=== PATIENT | male | born 1980 | race American Indian/Alaskan Native ===

== ENCOUNTER 2016-04-23 02:41 | Emergency (ER) | payer SELFPAY ==
[2016-04-23 03:02] VITALS: BP 144/99
[2016-04-23 03:28] LABS: Basophils % (Auto) 0.4 % (0.0-1.8); Hematocrit 44.7 % (35.5-45.6); Hemoglobin 14.9 gm/dl (11.8-15.2); Mean Corpuscular HGB Conc 33 % (32-34); Mean Corpuscular Hemoglobin 31 pg (28-32); Mean Corpuscular Volume 92 fl (84-94); Platelet Count 133 K/mm3 (140-440); Red Blood Count 4.84 M/mm3 (3.65-5.03); Red Cell Distribution Width 12.6 % (13.2-15.2); White Blood Count 6.6 K/mm3 (4.5-11.0)
[2016-04-23 03:46] LABS: Anion Gap 20 mmol/L; BUN/Creatinine Ratio 13.33; Blood Urea Nitrogen 8 mg/dL (9-20); Calcium 8.8 mg/dL (8.4-10.2); Carbon Dioxide 19 mmol/L (22-30); Chloride 96.8 mmol/L (98-107); Glucose 268 mg/dL (75-100); Potassium 3.7 mmol/L (3.6-5.0); Sodium 132 mmol/L (137-145)
--- NOTE | 2016-04-23 04:34 | Emergency Department Report ---
- General Chief complaint: Skin/Abscess/Foreign Body Stated complaint: BUTTOCKS PAIN Time Seen by Provider: 04/23/16 04:33 Source: patient Mode of arrival: Ambulatory Limitations: No Limitations - History of Present Illness Initial comments: 35-year-old male presents to emergency room with complaints of bump to the right buttock area for the last few days. Patient is concerned because his diabetic. He denies of any fever or drainage. MD complaint: abscess/boil (right gluteal area) -: Gradual, days(s) (few) Tetanus Up to Date: yes Location: buttocks (right) Severity: mild Severity scale (0 -10): 2 Quality: aching, dull Consistency: constant Improves with: none Worsens with: palpation, movement Context: none Associated symptoms: denies other symptoms Treatments Prior to Arrival: none - Related Data Home Medications Medication Instructions Recorded Confirmed Last Taken Gabapentin [Neurontin] 100 mg PO DAILY 10/10/14 06/22/15 06/21/15 Insulin Aspart Protam & Aspart 15 units SUB-Q QAC 10/10/14 06/22/15 06/21/15 [NovoLOG Mix 70-30 Flexpen] Insulin Glargine [Lantus VIAL] 15 units SUB-Q QHS 10/10/14 06/22/15 06/21/15 Lisinopril [Zestril TAB] 20 mg PO QDAY 10/10/14 06/22/15 06/21/15 metFORMIN [Glucophage] 1,000 mg PO BID 10/10/14 06/22/15 06/21/15 Previous Rx's Medication Instructions Recorded Last Taken Type Promethazine [Phenergan TAB] 25 mg PO Q6HR PRN #20 tab 10/10/14 Unknown Rx Azithromycin [Zithromax Z-ALL] 0 mg PO DAILY #6 tab 06/20/15 06/21/15 Rx guaiFENesin/CODEINE [Robitussin AC] 10 ml PO Q6HR PRN #180 ml 06/20/15 06/21/15 Rx ALBUTEROL Inhaler [ProAir HFA 2 puff IH QID PRN #1 container 06/22/15 Unknown Rx Inhaler] Cephalexin [Keflex] 500 mg PO Q8HR #21 cap 04/23/16 Unknown Rx Sulfamethoxazole/Trimethoprim 1 each PO BID #14 tablet 04/23/16 Unknown Rx [Bactrim DS TAB] traMADol [Ultram] 50 mg PO Q6HR PRN #12 tablet 04/23/16 Unknown Rx Allergies Allergy/AdvReac Type Severity Reaction Status Date / Time No Known Allergies Allergy Verified 05/22/14 02:31 Abscess Boil HPI - HPI Chief Complaint: Skin/Abscess/Foreign Body Stated Complaint: BUTTOCKS PAIN Time Seen by Provider: 04/23/16 04:33 Home Medications: Home Medications Medication Instructions Recorded Confirmed Last Taken Gabapentin [Neurontin] 100 mg PO DAILY 10/10/14 06/22/15 06/21/15 Insulin Aspart Protam & Aspart 15 units SUB-Q QAC 10/10/14 06/22/15 06/21/15 [NovoLOG Mix 70-30 Flexpen] Insulin Glargine [Lantus VIAL] 15 units SUB-Q QHS 10/10/14 06/22/15 06/21/15 Lisinopril [Zestril TAB] 20 mg PO QDAY 10/10/14 06/22/15 06/21/15 metFORMIN [Glucophage] 1,000 mg PO BID 10/10/14 06/22/15 06/21/15 Previous Rx's Medication Instructions Recorded Last Taken Type Promethazine [Phenergan TAB] 25 mg PO Q6HR PRN #20 tab 10/10/14 Unknown Rx Azithromycin [Zithromax Z-ALL] 0 mg PO DAILY #6 tab 06/20/15 06/21/15 Rx guaiFENesin/CODEINE [Robitussin AC] 10 ml PO Q6HR PRN #180 ml 06/20/15 06/21/15 Rx ALBUTEROL Inhaler [ProAir HFA 2 puff IH QID PRN #1 container 06/22/15 Unknown Rx Inhaler] Cephalexin [Keflex] 500 mg PO Q8HR #21 cap 04/23/16 Unknown Rx Sulfamethoxazole/Trimethoprim 1 each PO BID #14 tablet 04/23/16 Unknown Rx [Bactrim DS TAB] traMADol [Ultram] 50 mg PO Q6HR PRN #12 tablet 04/23/16 Unknown Rx Allergies/Adverse Reactions: Allergies Allergy/AdvReac Type Severity Reaction Status Date / Time No Known Allergies Allergy Verified 05/22/14 02:31 ED Review of Systems ROS: Stated complaint: BUTTOCKS PAIN Other details as noted in HPI Comment: All other systems reviewed and negative Constitutional: denies: chills, fever Eyes: denies: eye pain, eye discharge, vision change ENT: denies: ear pain, throat pain Respiratory: denies: cough, shortness of breath, wheezing Cardiovascular: denies: chest pain, palpitations Endocrine: no symptoms reported Gastrointestinal: denies: abdominal pain, nausea, diarrhea Genitourinary: denies: urgency, dysuria Musculoskeletal: denies: back pain, joint swelling, arthralgia Skin: as per HPI. denies: rash, lesions Neurological: denies: headache, weakness, paresthesias Psychiatric: denies: anxiety, depression Hematological/Lymphatic: denies: easy bleeding, easy bruising ED Past Medical Hx - Past Medical History Previous Medical History?: Yes Hx Hypertension: Yes Hx Diabetes: Yes Hx Asthma: Yes Additional medical history: Neuropathy - Surgical History Past Surgical History?: No - Social History Smoking Status: Never Smoker Substance Use Type: Alcohol - Medications Home Medications: Home Medications Medication Instructions Recorded Confirmed Last Taken Type Gabapentin [Neurontin] 100 mg PO DAILY 10/10/14 06/22/15 06/21/15 History Insulin Aspart Protam & Aspart 15 units SUB-Q QAC 10/10/14 06/22/15 06/21/15 History [NovoLOG Mix 70-30 Flexpen] Insulin Glargine [Lantus VIAL] 15 units SUB-Q QHS 10/10/14 06/22/15 06/21/15 History Lisinopril [Zestril TAB] 20 mg PO QDAY 10/10/14 06/22/15 06/21/15 History Promethazine [Phenergan TAB] 25 mg PO Q6HR PRN #20 tab 10/10/14 06/22/15 Unknown Rx metFORMIN [Glucophage] 1,000 mg PO BID 10/10/14 06/22/15 06/21/15 History Azithromycin [Zithromax Z-ALL] 0 mg PO DAILY #6 tab 06/20/15 06/22/15 06/21/15 Rx guaiFENesin/CODEINE [Robitussin AC] 10 ml PO Q6HR PRN #180 ml 06/20/15 06/22/15 06/21/15 Rx ALBUTEROL Inhaler [ProAir HFA 2 puff IH QID PRN #1 container 06/22/15 Unknown Rx Inhaler] Cephalexin [Keflex] 500 mg PO Q8HR #21 cap 04/23/16 Unknown Rx Sulfamethoxazole/Trimethoprim 1 each PO BID #14 tablet 04/23/16 Unknown Rx [Bactrim DS TAB] traMADol [Ultram] 50 mg PO Q6HR PRN #12 tablet 04/23/16 Unknown Rx ED Physical Exam - General Limitations: No Limitations General appearance: alert, in no apparent distress - Head Head exam: Present: atraumatic, normocephalic - Eye Eye exam: Present: normal appearance - ENT ENT exam: Present: mucous membranes moist - Neck Neck exam: Present: normal inspection - Respiratory Respiratory exam: Present: normal lung sounds bilaterally. Absent: respiratory distress - Cardiovascular Cardiovascular Exam: Present: regular rate, normal rhythm. Absent: systolic murmur, diastolic murmur, rubs, gallop - GI/Abdominal GI/Abdominal exam: Present: soft, normal bowel sounds - Rectal Rectal exam: Present: deferred - Extremities Exam Extremities exam: Present: normal inspection - Back Exam Back exam: Present: normal inspection - Neurological Exam Neurological exam: Present: alert, oriented X3 - Psychiatric Psychiatric exam: Present: normal affect, normal mood - Skin Skin exam: Present: warm, dry, intact, normal color, other (1 cm size flat abscess to right buttock , near gluteal cleft without surrounding erythema or drainage noted.). Absent: rash ED Course Vital Signs 04/23/16 02:56 Temperature 99.5 F Pulse Rate 93 H Blood Pressure 144/99 O2 Sat by Pulse 97 Oximetry ED Medical Decision Making - Lab Data Result diagrams: 04/23/16 03:09 04/23/16 03:09 Critical care attestation.: If time is entered above; I have spent that time in minutes in the direct care of this critically ill patient, excluding procedure time. ED Disposition Clinical Impression: Abscess of buttock, right Disposition: DISCHARGED TO HOME OR SELFCARE Is pt being admited?: No Does the pt Need Aspirin: No Condition: Good Instructions: Abscess (ED) Prescriptions: Cephalexin [Keflex] 500 mg PO Q8HR #21 cap Sulfamethoxazole/Trimethoprim [Bactrim DS TAB] 1 each PO BID #14 tablet traMADol [Ultram] 50 mg PO Q6HR PRN #12 tablet PRN Reason: Pain Referrals: PRIMARY CARE, [Primary Care Provider] - 3-5 Days
[2016-04-23] MEDS ORDERED: NORCO 5/325 PO ONE (04:42)
[2016-04-23] MEDS ORDERED: BACTRIM DS PO ONE (04:42)
[2016-04-23] MEDS ORDERED: KEFLEX PO ONE (04:43)
== END 2016-04-23 05:20 | disposition home or self-care (01) ==
LOC: ED 02:41
DX: L02.31 Cutaneous abscess of buttock (principal); I10 Essential (primary) hypertension; E11.9 Type 2 diabetes mellitus without complications; J45.909 Unspecified asthma, uncomplicated
CPT/HCPCS: 36415; 80048; 82140; 85025; 99283

== ENCOUNTER 2016-06-29 14:04 | Emergency (ER) | payer SELFPAY ==
[2016-06-29 20:07] VITALS: BP 135/87
--- NOTE | 2016-07-01 07:31 | Emergency Department Report ---
Entered by KENIA BATEMAN, acting as scribe for CORI MURRAY NP. ED ENT HPI - General Chief complaint: Earache Stated complaint: LEFT EAR INFECTION Time Seen by Provider: 06/29/16 17:38 Source: patient Mode of arrival: Ambulatory Limitations: No Limitations - History of Present Illness Initial comments: 35 y/o male, NAD, non-toxic and well nourished, presents c/o left lower earlobe pain that started 3 days ago but worsened today. Pt notes using brand new earrings 3 days ago, without cleaning them prior. Sx include erythema, puss and swelling to the lower left earlobe but pt denies fever, chills, hearing problems , chest pain, ringing in ears, abd pain, ESPOSITO, or n/v. NKDA. complaint: ear pain (left) -: days(s) (3) Location: L ear Severity: mild Severity scale (0 -10): 4 Quality: constant Consistency: constant Improves with: none Context- Ear: other (put in new earrings) Associated Symptoms: denies: fever, cough, pain with swallowing, sore throat, hearing loss, discharge from ear, rhinorrhea - Related Data Home Medications Medication Instructions Recorded Confirmed Last Taken Gabapentin [Neurontin] 100 mg PO DAILY 10/10/14 06/22/15 06/21/15 Insulin Aspart Protam & Aspart 15 units SUB-Q QAC 10/10/14 06/22/15 06/21/15 [NovoLOG Mix 70-30 Flexpen] Insulin Glargine [Lantus VIAL] 15 units SUB-Q QHS 10/10/14 06/22/15 06/21/15 Lisinopril [Zestril TAB] 20 mg PO QDAY 10/10/14 06/22/15 06/21/15 metFORMIN [Glucophage] 1,000 mg PO BID 10/10/14 06/22/15 06/21/15 Previous Rx's Medication Instructions Recorded Last Taken Type Promethazine [Phenergan TAB] 25 mg PO Q6HR PRN #20 tab 10/10/14 Unknown Rx Azithromycin [Zithromax Z-ALL] 0 mg PO DAILY #6 tab 06/20/15 06/21/15 Rx guaiFENesin/CODEINE [Robitussin AC] 10 ml PO Q6HR PRN #180 ml 06/20/15 06/21/15 Rx ALBUTEROL Inhaler [ProAir HFA 2 puff IH QID PRN #1 container 06/22/15 Unknown Rx Inhaler] Cephalexin [Keflex] 500 mg PO Q8HR #21 cap 04/23/16 Unknown Rx Sulfamethoxazole/Trimethoprim 1 each PO BID #14 tablet 04/23/16 Unknown Rx [Bactrim DS TAB] traMADol [Ultram] 50 mg PO Q6HR PRN #12 tablet 04/23/16 Unknown Rx Sulfamethoxazole/Trimethoprim 1 each PO BID 7 Days 06/29/16 Unknown Rx [Bactrim DS TAB] Allergies Allergy/AdvReac Type Severity Reaction Status Date / Time No Known Allergies Allergy Verified 05/22/14 02:31 ED Dental HPI - General Chief complaint: Earache Stated complaint: LEFT EAR INFECTION Time Seen by Provider: 06/29/16 17:38 Source: patient Mode of arrival: Ambulatory Limitations: No Limitations - Related Data Home Medications Medication Instructions Recorded Confirmed Last Taken Gabapentin [Neurontin] 100 mg PO DAILY 10/10/14 06/22/15 06/21/15 Insulin Aspart Protam & Aspart 15 units SUB-Q QAC 10/10/14 06/22/15 06/21/15 [NovoLOG Mix 70-30 Flexpen] Insulin Glargine [Lantus VIAL] 15 units SUB-Q QHS 10/10/14 06/22/15 06/21/15 Lisinopril [Zestril TAB] 20 mg PO QDAY 10/10/14 06/22/15 06/21/15 metFORMIN [Glucophage] 1,000 mg PO BID 10/10/14 06/22/15 06/21/15 Previous Rx's Medication Instructions Recorded Last Taken Type Promethazine [Phenergan TAB] 25 mg PO Q6HR PRN #20 tab 10/10/14 Unknown Rx Azithromycin [Zithromax Z-ALL] 0 mg PO DAILY #6 tab 06/20/15 06/21/15 Rx guaiFENesin/CODEINE [Robitussin AC] 10 ml PO Q6HR PRN #180 ml 06/20/15 06/21/15 Rx ALBUTEROL Inhaler [ProAir HFA 2 puff IH QID PRN #1 container 06/22/15 Unknown Rx Inhaler] Cephalexin [Keflex] 500 mg PO Q8HR #21 cap 04/23/16 Unknown Rx Sulfamethoxazole/Trimethoprim 1 each PO BID #14 tablet 04/23/16 Unknown Rx [Bactrim DS TAB] traMADol [Ultram] 50 mg PO Q6HR PRN #12 tablet 04/23/16 Unknown Rx Sulfamethoxazole/Trimethoprim 1 each PO BID 7 Days 06/29/16 Unknown Rx [Bactrim DS TAB] Allergies Allergy/AdvReac Type Severity Reaction Status Date / Time No Known Allergies Allergy Verified 05/22/14 02:31 ED Review of Systems Comment: All other systems reviewed and negative Constitutional: denies: chills, fever ENT: ear pain (left lower earlobe), other (left lower earlobe swelling, erythema , puss but pt denies ringing in ears or hearing loss). denies: hearing loss Respiratory: denies: cough, shortness of breath Cardiovascular: denies: chest pain Gastrointestinal: denies: abdominal pain, nausea, vomiting, diarrhea Skin: other (left lower earlobe swelling, erythema, purulent drainage) Neurological: denies: headache, numbness ED Past Medical Hx - Past Medical History Previous Medical History?: Yes Hx Hypertension: Yes Hx Diabetes: Yes Hx Asthma: Yes Additional medical history: Neuropathy - Surgical History Past Surgical History?: No - Social History Smoking Status: Current Every Day Smoker Substance Use Type: Alcohol, Prescribed - Medications Home Medications: Home Medications Medication Instructions Recorded Confirmed Last Taken Type Gabapentin [Neurontin] 100 mg PO DAILY 10/10/14 06/22/15 06/21/15 History Insulin Aspart Protam & Aspart 15 units SUB-Q QAC 10/10/14 06/22/15 06/21/15 History [NovoLOG Mix 70-30 Flexpen] Insulin Glargine [Lantus VIAL] 15 units SUB-Q QHS 10/10/14 06/22/15 06/21/15 History Lisinopril [Zestril TAB] 20 mg PO QDAY 10/10/14 06/22/15 06/21/15 History Promethazine [Phenergan TAB] 25 mg PO Q6HR PRN #20 tab 10/10/14 06/22/15 Unknown Rx metFORMIN [Glucophage] 1,000 mg PO BID 10/10/14 06/22/15 06/21/15 History Azithromycin [Zithromax Z-ALL] 0 mg PO DAILY #6 tab 06/20/15 06/22/15 06/21/15 Rx guaiFENesin/CODEINE [Robitussin AC] 10 ml PO Q6HR PRN #180 ml 06/20/15 06/22/15 06/21/15 Rx ALBUTEROL Inhaler [ProAir HFA 2 puff IH QID PRN #1 container 06/22/15 Unknown Rx Inhaler] Cephalexin [Keflex] 500 mg PO Q8HR #21 cap 04/23/16 Unknown Rx Sulfamethoxazole/Trimethoprim 1 each PO BID #14 tablet 04/23/16 Unknown Rx [Bactrim DS TAB] traMADol [Ultram] 50 mg PO Q6HR PRN #12 tablet 04/23/16 Unknown Rx Sulfamethoxazole/Trimethoprim 1 each PO BID 7 Days 06/29/16 Unknown Rx [Bactrim DS TAB] ED Physical Exam - General Limitations: No Limitations General appearance: alert, in no apparent distress - Head Head exam: Present: atraumatic, normocephalic - Eye Eye exam: Present: normal appearance, PERRL, EOMI - ENT ENT exam: Present: normal exam, mucous membranes moist, TM's normal bilaterally , normal external ear exam, other (left lower earlobe swelling, erythema and purulent drainage) - Neck Neck exam: Present: normal inspection, full ROM. Absent: tenderness, meningismus, lymphadenopathy - Respiratory Respiratory exam: Present: normal lung sounds bilaterally, respiratory distress. Absent: wheezes, rales, rhonchi, stridor - Cardiovascular Cardiovascular Exam: Present: regular rate, normal rhythm, normal heart sounds. Absent: systolic murmur, diastolic murmur, rubs, gallop - GI/Abdominal GI/Abdominal exam: Present: soft, normal bowel sounds. Absent: tenderness, guarding, rebound - exam: Present: normal inspection - Extremities Exam Extremities exam: Present: normal inspection, full ROM, normal capillary refill. Absent: tenderness, pedal edema, joint swelling, calf tenderness - Back Exam Back exam: Present: normal inspection, full ROM. Absent: tenderness, CVA tenderness (R), CVA tenderness (L) - Neurological Exam Neurological exam: Present: alert, oriented X3, CN II-XII intact, normal gait - Psychiatric Psychiatric exam: Present: normal affect, normal mood - Skin Skin exam: Present: other (swelling, erythema and purulent drainage to the left lower earlobe) - Other Other exam information: Patient denies mastoid tenderness. No erythema or swelling noted mastoid area. No abscess or boil present. ED Course Vital Signs 06/29/16 14:40 Temperature 98.4 F Pulse Rate 70 Respiratory 18 Rate Blood Pressure 137/93 O2 Sat by Pulse 99 Oximetry ED Medical Decision Making - Medical Decision Making ED course: This is a 35-year-old male that presents with cellulitis to the left earlobe 1- after my physical exam, patient is prescribed Bactrim for 7 days. Patient was instructed to finish full course of antibiotics as prescribed. 2- patient was also instructed to follow-up with his primary care doctor in 3-5 days or if symptoms worsen report back to emergency room. 3- at the time of discharge the patient does not seem toxic or ill in appearance. No signs of distress noted. Patient agrees to discharge treatment plan. No further questions noted by the patient. ED Disposition Clinical Impression: Cellulitis of left earlobe Disposition: DISCHARGED TO HOME OR SELFCARE Is pt being admited?: No Does the pt Need Aspirin: No Condition: Stable Instructions: Cellulitis (ED) Additional Instructions: Follow-up with her primary care doctor in 3-5 days. If symptoms worsen such as boil, pus, drainage, worsening symptoms reported emergency room. Take full course of antibiotics as prescribed. Prescriptions: Sulfamethoxazole/Trimethoprim [Bactrim DS TAB] 1 each PO BID 7 Days Referrals: PRIMARY MD KARYN [Primary Care Provider] - 3-5 Days [facility] [Outside] - 3-5 Days [facility] [place] [Outside] - 3-5 Days YUN BOUDREAUX MD [Staff Physician] - 3-5 Days Forms: Work/School Release Form(ED) This documentation as recorded by the BHAVANA edwards RYAN,accurately reflects the service I personally performed and the decisions made by me,CORI MURRAY, NANCY.
== END 2016-06-29 20:08 | disposition home or self-care (01) ==
LOC: ED 14:04
DX: H60.12 Cellulitis of left external ear (principal); I10 Essential (primary) hypertension; E11.9 Type 2 diabetes mellitus without complications; J45.909 Unspecified asthma, uncomplicated; F17.200 Nicotine dependence, unspecified, uncomplicated; Z79.4 Long term (current) use of insulin
CPT/HCPCS: 82962; 99282

== ENCOUNTER 2017-02-22 15:36 | Emergency (ER) | payer SELFPAY ==
--- NOTE | 2017-02-22 22:10 | Emergency Department Report ---
[facility] Chief Complaint: Eye Problems Stated Complaint: PINK EYE Time Seen by Provider: 02/22/17 22:00 Duration: 1 Day Side: Right Severity: moderate Symptoms: Yes Eye Itching, Yes Eye Redness, Yes Eye Pain, Yes Mucous Drainage, Yes Purulent Drainage, No Blurred Vision, No Preceding URI, No H/O Allergic Rhinitis, No Contact Lens Use, No Trauma, No Fever, No Headache ED Review of Systems ROS: Stated complaint: PINK EYE Other details as noted in HPI Constitutional: denies: chills, fever Eyes: eye pain, eye discharge. denies: vision change ENT: denies: ear pain, throat pain Respiratory: denies: cough, shortness of breath, wheezing Cardiovascular: denies: chest pain, palpitations Endocrine: no symptoms reported Gastrointestinal: denies: abdominal pain, nausea, diarrhea Genitourinary: denies: urgency, dysuria Musculoskeletal: denies: back pain, joint swelling, arthralgia Skin: denies: rash, lesions Neurological: denies: headache, weakness, paresthesias Psychiatric: denies: anxiety, depression Hematological/Lymphatic: denies: easy bleeding, easy bruising ED Past Medical Hx - Past Medical History Previous Medical History?: Yes Hx Hypertension: Yes Hx Diabetes: Yes Hx Asthma: Yes Additional medical history: Neuropathy - Surgical History Past Surgical History?: No - Social History Smoking Status: Former Smoker Substance Use Type: Alcohol, Prescribed - Medications Home Medications: Home Medications Medication Instructions Recorded Confirmed Last Taken Type Gabapentin [Neurontin] 100 mg PO DAILY 10/10/14 06/22/15 06/21/15 History Insulin Aspart Protam & Aspart 15 units SUB-Q QAC 10/10/14 06/22/15 06/21/15 History [NovoLOG Mix 70-30 Flexpen] Insulin Glargine [Lantus VIAL] 15 units SUB-Q QHS 10/10/14 06/22/15 06/21/15 History Lisinopril [Zestril TAB] 20 mg PO QDAY 10/10/14 06/22/15 06/21/15 History Promethazine [Phenergan TAB] 25 mg PO Q6HR PRN #20 tab 10/10/14 06/22/15 Unknown Rx metFORMIN [Glucophage] 1,000 mg PO BID 10/10/14 06/22/15 06/21/15 History Azithromycin [Zithromax Z-ALL] 0 mg PO DAILY #6 tab 06/20/15 06/22/15 06/21/15 Rx guaiFENesin/CODEINE [Robitussin AC] 10 ml PO Q6HR PRN #180 ml 06/20/15 06/22/15 06/21/15 Rx ALBUTEROL Inhaler [ProAir HFA 2 puff IH QID PRN #1 container 06/22/15 Unknown Rx Inhaler] Cephalexin [Keflex] 500 mg PO Q8HR #21 cap 04/23/16 Unknown Rx Sulfamethoxazole/Trimethoprim 1 each PO BID #14 tablet 04/23/16 Unknown Rx [Bactrim DS TAB] traMADol [Ultram] 50 mg PO Q6HR PRN #12 tablet 04/23/16 Unknown Rx Sulfamethoxazole/Trimethoprim 1 each PO BID 7 Days tablet 06/29/16 Unknown Rx [Bactrim DS TAB] Cetirizine HCl [Zyrtec] 10 mg PO DAILY #30 tablet 02/22/17 Unknown Rx Lisinopril 20 mg PO DAILY #90 tablet 02/22/17 Unknown Rx Polymyxin B Sulf/Trimethoprim 1 drop OD QID #10 ml 02/22/17 Unknown Rx [Polytrim Eye Drops] [facility] Exam - Exam General: Vital signs noted. No distress. Alert and acting appropriately. Eye Exam: Right Injection, Right Mucous Discharge, Right Purulent Discharge, Both EOMI, Neither Chemosis, Neither Abnormal Pupil, Neither Eye Foreign Body, Neither Lid Foreign Body, Neither Photophobia HEENT: No Nasal Congestion, No Pharyngeal Erythema Remainder of HEENT: Normal Lungs: Yes Clear Lung Sounds, Yes Good Air Exchange, No Wheezes, No Stridor, No Cough, No Nasal Flaring, No Retractions, No Use of Accessory Muscles ED Course Vital Signs 02/22/17 16:07 Temperature 99.6 F Pulse Rate 84 Respiratory 18 Rate Blood Pressure 149/86 O2 Sat by Pulse 97 Oximetry ED Medical Decision Making - Medical Decision Making 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 1 day after contact sick contact 2 days ago symptoms include pain, discharge burning and itching, pt notes purulent discharge this am, there is no photophobia perrla eomi bilat right conjunctivae erythema, visual acuity 20/20 bilat, there is no blurred vision no decreased or double vision this is simple conjunctivitis , will tx for same , there is no eye swelling no lid cellulitis no periorbital cellulitis no throat or ear pain, pt with follow up with opthalmology Critical care attestation.: If time is entered above; I have spent that time in minutes in the direct care of this critically ill patient, excluding procedure time. ED Disposition Clinical Impression: Medication refill Conjunctivitis Qualifiers: Conjunctivitis type: acute Acute conjunctivitis type: bacterial Laterality: right Qualified Code(s): H10.31 - Unspecified acute conjunctivitis, right eye Disposition: DC- TO HOME OR SELFCARE Is pt being admited?: No Does the pt Need Aspirin: No Condition: Good Instructions: Conjunctivitis (ED) Prescriptions: Cetirizine HCl [Zyrtec] 10 mg PO DAILY #30 tablet Lisinopril 20 mg PO DAILY #90 tablet Polymyxin B Sulf/Trimethoprim [Polytrim Eye Drops] 1 drop OD QID #10 ml Referrals: CEZAR GONZALEZ MD [Primary Care Provider] - 3-5 Days Forms: Work/School Release Form(ED) Time of Disposition: 22:13
[2017-02-22 22:22] VITALS: BP 142/88
== END 2017-02-22 22:21 | disposition home or self-care (01) ==
LOC: ED 15:36
DX: H10.9 Unspecified conjunctivitis (principal); I10 Essential (primary) hypertension; E11.40 Type 2 diabetes mellitus with diabetic neuropathy, unspecified; Z79.4 Long term (current) use of insulin; Z87.891 Personal history of nicotine dependence
CPT/HCPCS: 99282

== ENCOUNTER 2018-02-24 12:26 | Emergency (ER) | payer SELFPAY ==
[2018-02-24 12:40] VITALS: BP 141/84
[2018-02-24] MEDS ORDERED: XYLOCAINE 2% INFILTRATI ONE (15:05)
[2018-02-24] MEDS ORDERED: NORCO 5/325 PO ONE (15:05)
--- NOTE | 2018-02-24 15:06 | Emergency Department Report ---
Abscess Boil HPI - HPI Chief Complaint: Skin/Abscess/Foreign Body Stated Complaint: GROIN PAIN/UNRINE RETENTION Duration: 3 Days Location: Perianal Severity: Moderate History: Yes Pain, Yes Purulent Drainage, No Fever, No Numbness, No Foreign Body, No Previous History, No Insect Bite HPI: This is a 37-year-old -[place] male presents with an abscess to right buttock for 3 days. Past medical history of diabetes type 2, asthma, and hypertension. Patient states that it initially started out small and progressed over the past few days. He is applying warm compresses which initiated purulent discharge. Patient wears pain is 10 out of 10 on pain scale worse with sitting. Home Medications: Home Medications Medication Instructions Recorded Confirmed Last Taken Gabapentin [Neurontin] 100 mg PO DAILY 10/10/14 06/22/15 06/21/15 Insulin Aspart Protam & Aspart 15 units SUB-Q QAC 10/10/14 06/22/15 06/21/15 [NovoLOG Mix 70-30 Flexpen] Insulin Glargine [Lantus VIAL] 15 units SUB-Q QHS 10/10/14 06/22/15 06/21/15 Lisinopril [Zestril TAB] 20 mg PO QDAY 10/10/14 06/22/15 06/21/15 metFORMIN [Glucophage] 1,000 mg PO BID 10/10/14 06/22/15 06/21/15 Previous Rx's Medication Instructions Recorded Last Taken Type Promethazine [Phenergan TAB] 25 mg PO Q6HR PRN #20 tab 10/10/14 Unknown Rx Azithromycin [Zithromax Z-ALL] 0 mg PO DAILY #6 tab 06/20/15 06/21/15 Rx guaiFENesin/CODEINE [Robitussin AC] 10 ml PO Q6HR PRN #180 ml 06/20/15 06/21/15 Rx ALBUTEROL Inhaler (OR & NICU) 2 puff IH QID PRN #1 container 06/22/15 Unknown Rx [ProAir HFA Inhaler] Sulfamethoxazole/Trimethoprim 1 each PO BID #14 tablet 04/23/16 Unknown Rx [Bactrim DS TAB] cephALEXin [Keflex] 500 mg PO Q8HR #21 cap 04/23/16 Unknown Rx traMADol [Ultram] 50 mg PO Q6HR PRN #12 tablet 04/23/16 Unknown Rx Sulfamethoxazole/Trimethoprim 1 each PO BID 7 Days tablet 06/29/16 Unknown Rx [Bactrim DS TAB] Cetirizine HCl [Zyrtec] 10 mg PO DAILY #30 tablet 02/22/17 Unknown Rx Lisinopril 20 mg PO DAILY #90 tablet 02/22/17 Unknown Rx Polymyxin B Sulf/Trimethoprim 1 drop OD QID #10 ml 02/22/17 Unknown Rx [Polytrim Eye Drops] ALBUTEROL Inhaler(NF) [VENTOLIN 2 puff IH Q4HR PRN #1 inha 02/13/18 Unknown Rx Inhaler(NF)] Azithromycin [Zithromax TAB] 500 mg PO QDAY #5 tablet 02/13/18 Unknown Rx predniSONE [Deltasone] 60 mg PO QDAY 5 Days tab 02/13/18 Unknown Rx Clindamycin [Clindamycin CAP] 300 mg PO Q8H #21 cap 02/24/18 Unknown Rx Naproxen [Naprosyn] 500 mg PO TID #20 tablet 02/24/18 Unknown Rx traMADol [Ultram 50 MG tab] 50 mg PO Q6HR PRN #12 tablet 02/24/18 Unknown Rx Allergies/Adverse Reactions: Allergies Allergy/AdvReac Type Severity Reaction Status Date / Time No Known Allergies Allergy Verified 02/24/18 12:40 ED Review of Systems ROS: Stated complaint: GROIN PAIN/UNRINE RETENTION Other details as noted in HPI Constitutional: denies: chills, fever Respiratory: denies: cough, shortness of breath, wheezing Cardiovascular: denies: chest pain, palpitations Gastrointestinal: denies: abdominal pain, nausea, diarrhea Skin: lesions (abscess to right inner buttock). denies: rash Neurological: denies: headache, weakness, paresthesias Psychiatric: denies: anxiety, depression ED Past Medical Hx - Past Medical History Previous Medical History?: Yes Hx Hypertension: Yes Hx Diabetes: Yes Hx Asthma: Yes Additional medical history: Neuropathy - Surgical History Past Surgical History?: No - Social History Smoking Status: Never Smoker Substance Use Type: Alcohol - Medications Home Medications: Home Medications Medication Instructions Recorded Confirmed Last Taken Type Gabapentin [Neurontin] 100 mg PO DAILY 10/10/14 06/22/15 06/21/15 History Insulin Aspart Protam & Aspart 15 units SUB-Q QAC 10/10/14 06/22/15 06/21/15 History [NovoLOG Mix 70-30 Flexpen] Insulin Glargine [Lantus VIAL] 15 units SUB-Q QHS 10/10/14 06/22/15 06/21/15 History Lisinopril [Zestril TAB] 20 mg PO QDAY 10/10/14 06/22/15 06/21/15 History Promethazine [Phenergan TAB] 25 mg PO Q6HR PRN #20 tab 10/10/14 06/22/15 Unknown Rx metFORMIN [Glucophage] 1,000 mg PO BID 10/10/14 06/22/15 06/21/15 History Azithromycin [Zithromax Z-ALL] 0 mg PO DAILY #6 tab 06/20/15 06/22/15 06/21/15 Rx guaiFENesin/CODEINE [Robitussin AC] 10 ml PO Q6HR PRN #180 ml 06/20/15 06/22/15 06/21/15 Rx ALBUTEROL Inhaler (OR & NICU) 2 puff IH QID PRN #1 container 06/22/15 Unknown Rx [ProAir HFA Inhaler] Sulfamethoxazole/Trimethoprim 1 each PO BID #14 tablet 04/23/16 Unknown Rx [Bactrim DS TAB] cephALEXin [Keflex] 500 mg PO Q8HR #21 cap 04/23/16 Unknown Rx traMADol [Ultram] 50 mg PO Q6HR PRN #12 tablet 04/23/16 Unknown Rx Sulfamethoxazole/Trimethoprim 1 each PO BID 7 Days tablet 06/29/16 Unknown Rx [Bactrim DS TAB] Cetirizine HCl [Zyrtec] 10 mg PO DAILY #30 tablet 02/22/17 Unknown Rx Lisinopril 20 mg PO DAILY #90 tablet 02/22/17 Unknown Rx Polymyxin B Sulf/Trimethoprim 1 drop OD QID #10 ml 02/22/17 Unknown Rx [Polytrim Eye Drops] ALBUTEROL Inhaler(NF) [VENTOLIN 2 puff IH Q4HR PRN #1 inha 02/13/18 Unknown Rx Inhaler(NF)] Azithromycin [Zithromax TAB] 500 mg PO QDAY #5 tablet 02/13/18 Unknown Rx predniSONE [Deltasone] 60 mg PO QDAY 5 Days tab 02/13/18 Unknown Rx Clindamycin [Clindamycin CAP] 300 mg PO Q8H #21 cap 02/24/18 Unknown Rx Naproxen [Naprosyn] 500 mg PO TID #20 tablet 02/24/18 Unknown Rx traMADol [Ultram 50 MG tab] 50 mg PO Q6HR PRN #12 tablet 02/24/18 Unknown Rx ED Abscess Boil Physical Exam - Exam General: Vital signs noted. No distress. Alert and acting appropriately. Front/Back of Body, Lg (Color): 1 - 3 cm fluctuant nodule right inner buttocks, tenderness, purulent drainage, no surrounding cellulitis. Size: 3 cm Exam: Yes Tenderness, Yes Fluctuance, Yes Normal Neurologic Exam, Yes Normal Circulation, No Surrounding Cellulites/Erythema, No Lymphangitis, No Crepitati on, No Heart Murmur I & D Note - I & D Note I & D Note: The area was prepared and draped in the usual, sterile manner. The site, right inner buttock was anesthetized with 2% lidocaine without epinephrine. A linear incision along the local skin lines was made and the purulent material expressed. The abcess was explored thoroughly and sequestered pockets were opened. Bleeding was minimal. Packing: idodoform. Followup: The patient tolerated the procedure well without complications. Standard post- procedure care was explained and return precautions are given. ED Course Vital Signs 02/24/18 12:35 Temperature 98.2 F Pulse Rate 87 Respiratory 18 Rate Blood Pressure 141/84 O2 Sat by Pulse 99 Oximetry Critical care attestation.: If time is entered above; I have spent that time in minutes in the direct care of this critically ill patient, excluding procedure time. ED Medical Decision Making - Medical Decision Making This is a 37 y.o. male that presents with a painful abscess to right buttocks for 3 days. History of prior abscess. Patient is stable and examined by me. Physical assessment of 3 cm fluctuance nodule to right buttock. No acute signs of distress noted. Given norco 5/325 mg po once in ER. I&D refer to note. Discussed plan to start clindamycin, tramadol, and ibuprofen with patient. Educated patient and spouse on follow up plan to have packing removed and wound reassessed in 2-3 days. Patient agrees to ED plan of care. Discharged home and follow up with PCP in 2-3 days. ED Disposition Clinical Impression: Abscess of buttock, right Disposition: DC- TO HOME OR SELFCARE Is pt being admited?: No Does the pt Need Aspirin: No Condition: Stable Instructions: Abscess Incision and Drainage (ED), Abscess (ED) Additional Instructions: Keep packing in place for 2-3 days. Return to ER or f/u with PCP to have packing removed and wound reassessed. Complete full round of clindamycin antibiotic as prescribed. Follow up with PCP or ER in 2-3 days. Return to ER if foul smelling discharge, swelling, or severe pain to wound. Prescriptions: Clindamycin [Clindamycin CAP] 300 mg PO Q8H #21 cap Naproxen [Naprosyn] 500 mg PO TID #20 tablet traMADol [Ultram 50 MG tab] 50 mg PO Q6HR PRN #12 tablet PRN Reason: Pain Referrals: [facility] [Outside] - 3-5 Days [facility] [Outside] - 3-5 Days [facility] [Provider Group] - 3-5 Days [facility] [Provider Group] - 3-5 Days Forms: Work/School Release Form(ED) Time of Disposition: 16:05
== END 2018-02-24 17:02 | disposition home or self-care (01) ==
LOC: ED 12:26
DX: L02.31 Cutaneous abscess of buttock (principal); I10 Essential (primary) hypertension; E11.9 Type 2 diabetes mellitus without complications; J45.909 Unspecified asthma, uncomplicated; Z79.4 Long term (current) use of insulin
CPT/HCPCS: 82962

== ENCOUNTER 2018-02-27 16:22 | Emergency (ER) | payer SELFPAY ==
--- NOTE | 2018-02-27 21:22 | Emergency Department Report ---
Suture/Staple Removal - HPI Chief Complaint: Laceration/Recheck/Suture Stated Complaint: PACK REMOVAL When Sutures or [place] Placed: 3 days ago Wound Location: right buttocks ED Review of Systems ROS: Stated complaint: PACK REMOVAL Other details as noted in HPI Constitutional: denies: chills, fever Respiratory: denies: cough, shortness of breath, wheezing Cardiovascular: denies: chest pain, palpitations Gastrointestinal: denies: abdominal pain, nausea, diarrhea Skin: lesions (packing removal from wound to the right buttock). denies: rash Neurological: denies: headache, weakness, paresthesias Psychiatric: denies: anxiety, depression ED Past Medical Hx - Past Medical History Previous Medical History?: Yes Hx Hypertension: Yes Hx Diabetes: Yes Hx Asthma: Yes Additional medical history: Neuropathy - Surgical History Past Surgical History?: No - Social History Smoking Status: Current Some Day Smoker Substance Use Type: None - Medications Home Medications: Home Medications Medication Instructions Recorded Confirmed Last Taken Type Gabapentin [Neurontin] 100 mg PO DAILY 10/10/14 06/22/15 06/21/15 History Insulin Aspart Protam & Aspart 15 units SUB-Q QAC 10/10/14 06/22/15 06/21/15 History [NovoLOG Mix 70-30 Flexpen] Insulin Glargine [Lantus VIAL] 15 units SUB-Q QHS 10/10/14 06/22/15 06/21/15 History Lisinopril [Zestril TAB] 20 mg PO QDAY 10/10/14 06/22/15 06/21/15 History Promethazine [Phenergan TAB] 25 mg PO Q6HR PRN #20 tab 10/10/14 06/22/15 Unknown Rx metFORMIN [Glucophage] 1,000 mg PO BID 10/10/14 06/22/15 06/21/15 History Azithromycin [Zithromax Z-ALL] 0 mg PO DAILY #6 tab 06/20/15 06/22/15 06/21/15 Rx guaiFENesin/CODEINE [Robitussin AC] 10 ml PO Q6HR PRN #180 ml 06/20/15 06/22/15 06/21/15 Rx ALBUTEROL Inhaler (OR & NICU) 2 puff IH QID PRN #1 container 06/22/15 Unknown Rx [ProAir HFA Inhaler] Sulfamethoxazole/Trimethoprim 1 each PO BID #14 tablet 04/23/16 Unknown Rx [Bactrim DS TAB] cephALEXin [Keflex] 500 mg PO Q8HR #21 cap 04/23/16 Unknown Rx traMADol [Ultram] 50 mg PO Q6HR PRN #12 tablet 04/23/16 Unknown Rx Sulfamethoxazole/Trimethoprim 1 each PO BID 7 Days tablet 06/29/16 Unknown Rx [Bactrim DS TAB] Cetirizine HCl [Zyrtec] 10 mg PO DAILY #30 tablet 02/22/17 Unknown Rx Lisinopril 20 mg PO DAILY #90 tablet 02/22/17 Unknown Rx Polymyxin B Sulf/Trimethoprim 1 drop OD QID #10 ml 02/22/17 Unknown Rx [Polytrim Eye Drops] ALBUTEROL Inhaler(NF) [VENTOLIN 2 puff IH Q4HR PRN #1 inha 02/13/18 Unknown Rx Inhaler(NF)] Azithromycin [Zithromax TAB] 500 mg PO QDAY #5 tablet 02/13/18 Unknown Rx predniSONE [Deltasone] 60 mg PO QDAY 5 Days tab 02/13/18 Unknown Rx Clindamycin [Clindamycin CAP] 300 mg PO Q8H #21 cap 02/24/18 Unknown Rx Naproxen [Naprosyn] 500 mg PO TID #20 tablet 02/24/18 Unknown Rx traMADol [Ultram 50 MG tab] 50 mg PO Q6HR PRN #12 tablet 02/24/18 Unknown Rx Suture Removal Exam - Exam General: Vital signs noted. No distress. Alert and acting appropriately. Wound: Yes Tenderness, No Pathologic Erythema, No Drainage, No Pus, No Wound Dehiscence Other Systems: All other systems reviewed and are unremarkable. ED Course Vital Signs 02/27/18 16:37 Temperature 98.9 F Pulse Rate 72 Respiratory 20 Rate Blood Pressure 163/96 O2 Sat by Pulse 100 Oximetry ED Recheck MDM - Differential Diagnosis Wound Recheck - Medical Decision Making This is a 37 y.o. male presents for packing removal from right buttocks from I&D 3 days ago. Patient is stable and examined by me. Packing removed with sterile forceps. Wound cleaned with normal saline and a nonadherent gauze, and 4 x 4 gauze applied to wound with surgical tape. No acute signs of distress noted. Instructed to complete antibiotics from prior visit as prescribed. Discharged home and follow up with PCP in 2-3 days. Critical care attestation.: If time is entered above; I have spent that time in minutes in the direct care of this critically ill patient, excluding procedure time. ED Disposition Clinical Impression: Abscess packing removal Disposition: TO HOME OR SELFCARE Is pt being admited?: No Does the pt Need Aspirin: No Condition: Stable Instructions: Acute Wound Care (ED) Referrals: [facility] [Outside] - 3-5 Days [facility] [Outside] - 3-5 Days [facility] [Outside] - 3-5 Days Time of Disposition: 21:22
== END 2018-02-27 21:25 | disposition home or self-care (01) ==
LOC: ED 16:22